=== PATIENT | female | born 1965 | race Caucasian/White ===

== ENCOUNTER → 2016-09-27 | Outpatient (CLI) | payer OTHER ==
[~2016-09-27] MED LIST: BACLOFEN 10MG T10 MG PO; BISACODYL SUPP10 MG RECTAL; BUSPIRONE HCL10 MG PO; CARAFATE 1 GM TA1 GM PO; CELEXA 20 MG TA20 M1; COZAAR 50 MG TA50 M2 PO; DELTASONE20 MG PO; DULERA 200 MCG/13 GM INH; FLEXERIL PO; GABAPENTIN 100100 MG PO; HYDROCODON-ACE1 EAC7 PO; IBUPROFEN 600600 M1 PO; LEVAQUIN 500 M500 M2 PO; LIORESAL 10 MG10 MG PO; MECLIZINE HCL25 M1 PO; MEDROLDOSEPACK PO; MOBIC7.5 M1 PO; NEOSPORIN ANT70.8 GM; NORCO 5-325 TA1 EACH PO; PERCOCET 10-321 EACH PO; PHENERGAN 25 MG25 M1 PO; PREVACID 24HR15 MG PO; PRILOSEC20 MG; PRILOSEC40 MG PO; PROAIR HFA8.5 GM IH; PROPRANOLOL 1010 MG; PROPRANOLOL 1010 MG PO; PROTONIX40 M2 PO; SENNA8.6 MG PO; TESSALON200 MG PO; VENTOLIN HFA 1818 GM INH; VICODIN 5-3001 EACH PO; XANAX XR1 MG PO; XANAX1 MG PO; ZANTAC 150MG T150 MG PO; ZOFRAN ODT4 MG PO
== END ==
LOC: NUC 09:10
DX: M54.6 Pain in thoracic spine (principal)